=== PATIENT | male | born 1985 | race Caucasian/White ===

== ENCOUNTER 2024-01-16 10:07 | Emergency (ER) | payer OTHER ==
[2024-01-16 10:48] VITALS: BP 137/72; O2SAT 99
--- NOTE | 2024-01-16 11:00 | ED Physician Documentation ---
PD HPI LOWER EXT INJURY - Stated complaint Stated Complaint: LT FT TOE INJ - Chief complaint Chief Complaint: Trauma Ext - History obtained from History obtained from: Patient - History of Present Illness PD HPI LOW EXT INJURY LOCATION: Left Type of injury: Blunt / blow (Dropped drill on L pinky toe last night w mod pain.) PD PAST MEDICAL HISTORY - Past Medical History Past Medical History: No - Past Surgical History Past Surgical History: Yes Ortho: Spine surgery - Present Medications Home Medications: Ambulatory Orders Medication Instructions Recorded Confirmed No Known Home Medications 01/16/24 01/16/24 - Allergies Allergies/Adverse Reactions: Allergies Allergy/AdvReac Type Severity Reaction Status Date / Time No Known Drug Allergies Allergy Verified 01/16/24 10:45 - Social History Does the pt smoke?: No Smoking Status: Never smoker Does the pt drink ETOH?: No Does the pt have substance abuse?: No - Immunizations Immunizations are current?: Yes - POLST Patient has POLST: No PD ED PE NORMAL - Vitals Vital signs reviewed: Yes - General General: Alert and oriented X 3, No acute distress - Extremities Extremities: Other (TTP/bruised L pinky toe, no deformity) - Neuro Neuro: Alert and oriented X 3, Normal speech - Psych Psych: Normal mood, Normal affect Results - Vitals Vitals: Vital Signs - 24 hr 01/16/24 10:39 Temperature 36.4 C L Heart Rate 70 Respiratory 20 Rate Blood Pressure 137/72 H O2 Saturation 99 Oxygen O2 Source Room air - Rads (name of study) Three-view x-ray left foot negative with particular attention to the left fifth digit Relevant Findings:: Final report received, EMP independent interpretation of test Departure - Departure Disposition: 01 Home, Self Care Clinical Impression: Contusion of toe of left foot Qualifiers: Encounter type: initial encounter Toe: lesser toe Damage to nail status: without damage Qualified Code(s): S90.122A - Contusion of left lesser toe(s) without damage to nail, initial encounter Condition: Good Record reviewed to determine appropriate education?: Yes Instructions: ED Sprain Toe Comments: Tylenol and/or ibuprofen for pain. You can use ice pack as well. Return for new or worsening symptoms. 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 Forms: PCP List Discharge Date/Time: 01/16/24 11:28
--- NOTE | 2024-01-16 12:28 | XRAY Report ---
PROCEDURE: Foot 3+V LT INDICATIONS: Trauma TECHNIQUE: 3 views of the foot were obtained. COMPARISON: None FINDINGS: Bones: No fractures or dislocations. No suspicious bony lesions. Soft tissues: Unremarkable. No radiopaque foreign body. IMPRESSION: Normal foot radiographs Reviewed by: Noe Lazaro MD on 01/16/2024 11:27 AM AKNIALL Approved by: Noe Lazaro MD on 01/16/2024 11:27 AM AKDT Station ID: [id number]
== END 2024-01-16 11:28 | disposition home or self-care (01) ==
LOC: ED 10:07
DX: S90.122A Contusion of left lesser toe(s) without damage to nail, initial encounter (principal); W20.8XXA Other cause of strike by thrown, projected or falling object, initial encounter
CPT/HCPCS: 99283